=== PATIENT | female | born 1955 | race Caucasian/White ===

== ENCOUNTER → 2017-02-04 | Outpatient (CLI) | payer BC ==
--- NOTE | 2017-02-07 06:58 | RADIOLOGY REPORT PS360 ---
CT CHEST W/O CONTRAST HISTORY: Follow-up pulmonary nodule PULMONARY NODULE ORDERING PHYSICIAN: Mary Hinkle APRN PATIENT AGE: 61 years TECHNIQUE: Helical acquisition obtainedwithout contrast. Axial, sagittal, and coronal reformatted images are generated and reviewed. COMPARISON: 07/07/2016 FINDINGS: There are few scattered small mediastinal and hilar lymph nodes some which are calcified. No adenopathy or mediastinal or hilar mass evident. There are moderate centrilobular emphysematous changes. Scattered calcified granulomas are noted as before. There is been no significant change in the 6 mm pulmonary nodule in the right middle lobe. No new nodules are evident. No effusions or infiltrates. No acute bony anomalies. There is osteosclerosis involving T8 and T9 endplates unchanged. Upper abdominal images are unremarkable. IMPRESSION: 1. Overall stable CT appearance of the chest. There are emphysematous changes with scattered areas of fibrosis. 2. No change in the 6 mm noncalcified nodule in the right middle lobe. Continued 6 month follow-up recommended to confirm one-year stability.
--- NOTE | 2017-02-07 08:58 | RADIOLOGY REPORT PS360 ---
DIG MAMM-SCREEN [facility]ES W/CAD CAD Screening COMPARISON: Outside digital mammograms 02/04/2016 and 6 month follow-up left mammogram 07/07/2016 INDICATION: There is no personal or family history of breast cancer. TECHNIQUE: Standard CC and MLO images were obtained. R2 CAD reviewed. FINDINGS: Moderate fibroglandular densities are seen in the central portions and subareolar regions of both breast. Again fibroglandular elements are slightly more prominent left breast than right there is no suspicious lesion and there are no suspicious microcalcifications. IMPRESSION: Fibrofatty parenchyma with no suspicious lesion seen recommend yearly follow-up BI-RADS CATEGORY: 1_Negative RECOMMENDED FOLLOWUP: 12M 12 MONTH FOLLOW-UP (A letter has been sent to the patient regarding results of the study.)
== END ==
LOC: RAD 01-25 15:15
DX: E78.2 Mixed hyperlipidemia (principal); Z87.891 Personal history of nicotine dependence; R91.1 Solitary pulmonary nodule; Z12.31 Encounter for screening mammogram for malignant neoplasm of breast; Z12.2 Encounter for screening for malignant neoplasm of respiratory organs
CPT/HCPCS: G0202

== ENCOUNTER → 2017-09-02 | Outpatient (CLI) | payer BC ==
--- NOTE | 2017-09-04 09:22 | RADIOLOGY REPORT PS360 ---
CT CHEST W/O CONTRAST HISTORY: Follow-up pulmonary nodule, solitary pulmonary nodule, COPD, emphysema SOLIDARY NODULE, HX NICOTINE DEPENDENCE ORDERING PHYSICIAN: Saul Reynolds MD PATIENT AGE: 61 years TECHNIQUE: Helical acquisition obtained following the intravenous administration of 75 mL of Isovue 370 .. Axial, sagittal, and coronal reformatted images are generated and reviewed. COMPARISON: 02/04/2017 and 07/07/2016 CT scans FINDINGS: No mediastinal or hilar mass. Calcified nodes are present in the mediastinum and right hilum. No adenopathy. Normal heart size. Centrilobular emphysematous changes are once again noted with obstructive chronic bronchitis. No change in the noncalcified 6 mm nodule in the right lower lobe. Small subpleural lymph node present in the right major fissure. Upper abdominal images show right nephrolithiasis with a 3 mm stone in the upper pole and a 5 mm stone in the lower pole. No acute bony anomalies are evident. Degenerative changes are present in the thoracic spine. IMPRESSION: 1. Stable 6 mm noncalcified nodule in the right middle lobe. 2. Centrilobular emphysematous change with obstructive chronic bronchitis and evidence of old granulomatous disease. 3. Right nephrolithiasis. 4. Recommend continued screening with low-dose chest CT in one year
== END ==
LOC: RAD 14:04
DX: R91.1 Solitary pulmonary nodule (principal); Z87.891 Personal history of nicotine dependence

== ENCOUNTER → 2017-11-03 | Outpatient (CLI) | payer BC ==
--- NOTE | 2017-11-03 15:16 | RADIOLOGY REPORT PS360 ---
EXAM: CERVICAL SPINE 4 OR 5 VIEWS HISTORY: Neck pain, torticollis TORTICOLLIS ORDERING PHYSICIAN: Saul Reynolds MD PATIENT AGE: 62 years COMPARISON: None FINDINGS: Normal alignment. No fracture or dislocation. No lytic or blastic change. There is degenerative disc disease at C5-C6 and C6-C7 with small endplate osteophytes decrease in the disc space and osteosclerosis of the endplates. There is mild uncovertebral hypertrophy. No prevertebral soft tissue swelling. There is mild upper thoracic scoliosis convex left. No cervical ribs. IMPRESSION: Degenerative disc disease cervical spine
== END ==
LOC: RAD 13:46
DX: M43.6 Torticollis (principal)